=== PATIENT | male | born 1950 | race Caucasian/White ===

== ENCOUNTER 2016-06-21 06:54 | Outpatient (CLI) | payer MEDICARE, OTHER | END 2016-06-21 06:55 | disposition home or self-care (01) | DX: E78.5 Hyperlipidemia, unspecified (principal); E11.9 Type 2 diabetes mellitus without complications; M10.9 Gout, unspecified ==

== ENCOUNTER 2016-08-29 08:38 | Day surgery (SDC) | payer MEDICARE, OTHER ==
[2016-08-29] MEDS ORDERED: LACTATED RINGERS 1,000 ML IV ONE (09:20)
[2016-08-29] MEDS ORDERED: MIDAZOLAM 2 MG/2 ML VIAL IVP ONE (11:08)
[2016-08-29] MEDS ORDERED: ONDANSETRON 4 MG/2 ML VIAL IVP ONE (11:08)
[2016-08-29] MEDS ORDERED: fentaNYL 250 MCG/5 ML VIAL IVP ONE (11:08)
== END 2016-08-29 08:39 | disposition home or self-care (01) ==
PROC: 0DBP8ZX Excision of Rectum, Via Natural or Artificial Opening Endoscopic, Diagnostic (ICD-10-PCS; 2016-08-29)
PROC: 0DBH8ZX Excision of Cecum, Via Natural or Artificial Opening Endoscopic, Diagnostic (ICD-10-PCS; principal; 2016-08-29 09:45)
DX: Z12.11 Encounter for screening for malignant neoplasm of colon (principal); K62.1 Rectal polyp; D12.0 Benign neoplasm of cecum; K57.30 Diverticulosis of large intestine without perforation or abscess without bleeding; K64.8 Other hemorrhoids; E11.9 Type 2 diabetes mellitus without complications; I10 Essential (primary) hypertension; Z79.82 Long term (current) use of aspirin; Z79.84 Long term (current) use of oral hypoglycemic drugs; Z88.2 Allergy status to sulfonamides; Z80.0 Family history of malignant neoplasm of digestive organs; Z80.1 Family history of malignant neoplasm of trachea, bronchus and lung; Z80.8 Family history of malignant neoplasm of other organs or systems; Z83.3 Family history of diabetes mellitus; Z82.49 Family history of ischemic heart disease and other diseases of the circulatory system; E66.01 Morbid (severe) obesity due to excess calories; Z68.41 Body mass index [BMI] 40.0-44.9, adult
CPT/HCPCS: 45380; J3010; J7120

== ENCOUNTER 2017-01-02 08:40 | Outpatient (CLI) | payer MEDICARE, OTHER ==
[2017-01-02 13:39] LABS: CALCIUM 9.5 mg/dL (8.5-10.3); CREATININE 0.9 mg/dL (0.6-1.2); POTASSIUM 3.9 mmol/L (3.5-5.0)
[2017-01-02 16:52] LABS: HEMOGLOBIN A1C 0.98 g/dL
== END 2017-01-02 08:41 ==
LOC: LAB.WCP 08:40
PROVIDERS: ATTEND Family Medicine
DX: E11.9 Type 2 diabetes mellitus without complications (principal); Z12.5 Encounter for screening for malignant neoplasm of prostate
CPT/HCPCS: 36415; 80048; 83036; G0103; 84153

== ENCOUNTER 2017-06-29 08:00 | Outpatient (CLI) | payer MEDICARE, OTHER ==
[2017-06-29 12:26] LABS: BASOPHILS # (AUTO) 0.1 10^3/uL (0.0-0.1); BASOPHILS % (AUTO) 0.7 %; EOSINOPHILS # (AUTO) 0.5 10^3/uL (0.0-0.7); EOSINOPHILS % (AUTO) 4.6 %; HGB - HEMOGLOBIN 14.5 g/dL (14.0-18.0); LYMPHOCYTES # (AUTO) 3.5 10^3/uL (1.5-3.5); LYMPHOCYTES % (AUTO) 33.7 %; MEAN CORPUSCULAR HEMOGLOBIN 29.4 pg (27.0-31.0); MEAN CORPUSCULAR VOLUME 86.3 fL (80.0-94.0); MEAN PLATELET VOLUME 8.9 fL (7.4-11.4); MONOCYTES % (AUTO) 9.2 %; NEUTROPHILS # (AUTO) 5.3 10^3/uL (1.5-6.6); NEUTROPHILS % (AUTO) 51.8 %; PLT - PLATELET COUNT 236 10^3/uL (130-450); RED BLOOD COUNT 4.92 10^6/uL (4.70-6.10); RED CELL DISTRIBUTION WIDTH 13.9 % (12.0-15.0); WHITE BLOOD COUNT 10.3 x10^3/uL (4.8-10.8)
[2017-06-29 12:45] LABS: ALBUMIN 3.9 g/dL (3.2-5.5); ALBUMIN/GLOBULIN RATIO 1.1 (1.0-2.2); ALKALINE PHOSPHATASE 49 IU/L (42-121); ALT ALANINE AMINOTRANSFERASE 34 IU/L (10-60); AST ASPARTATE AMINOTRANSFERASE 30 IU/L (10-42); BILIRUBIN,TOTAL 0.6 mg/dL (0.2-1.0); BUN - BLOOD UREA NITROGEN 12 mg/dL (6-20); CARBON DIOXIDE - CO2 27 mmol/L (21-32); CHLORIDE 100 mmol/L (101-111); CHOL/HDL RATIO 3.7 (<5.0); CHOLESTEROL 171 mg/dL; CREATININE 0.9 mg/dL (0.6-1.2); GFR - MDRD 84 (>89); GLUCOSE 146 mg/dL (70-100); HDL CHOLESTEROL 46 mg/dL; LDL CHOLESTEROL,CALCULATED 86 mg/dL; LDL/HDL RATIO 1.9 (<3.6); SODIUM 137 mmol/L (135-145); TOTAL PROTEIN 7.4 g/dL (6.7-8.2); VLDL CHOLESTEROL 39 mg/dL
[2017-06-29 13:20] LABS: HB2 TOTAL 15.7 g/dL; HEMOGLOBIN A1C 1.05 g/dL; HEMOGLOBIN A1C % 8.3 % (4.6-6.2)
== END 2017-06-29 08:01 | disposition home or self-care (01) ==
LOC: LAB.WCP 08:00
PROVIDERS: ATTEND Family Medicine
DX: E11.9 Type 2 diabetes mellitus without complications (principal)
CPT/HCPCS: 36415; 80053; 80061; 82043; 83036; 83721; 85025

== ENCOUNTER 2018-02-12 07:54 | Outpatient (CLI) | payer MEDICARE, OTHER ==
[2018-02-12 13:41] LABS: ALBUMIN 3.9 g/dL (3.2-5.5); ALBUMIN/GLOBULIN RATIO 1.1 (1.0-2.2); BILIRUBIN,TOTAL 0.4 mg/dL (0.2-1.0); CALCIUM 8.8 mg/dL (8.5-10.3); CREATININE 0.8 mg/dL (0.6-1.2); TOTAL PROTEIN 7.5 g/dL (6.7-8.2)
[2018-02-12 14:44] LABS: HB2 TOTAL 15.5 g/dL; HEMOGLOBIN A1C 0.89 g/dL; HEMOGLOBIN A1C % 7.4 % (4.6-6.2)
== END 2018-02-12 07:55 | disposition home or self-care (01) ==
LOC: LAB.WCP 07:54
PROVIDERS: ATTEND Family Medicine
DX: E11.9 Type 2 diabetes mellitus without complications (principal); Z12.5 Encounter for screening for malignant neoplasm of prostate
CPT/HCPCS: 36415; 80053; 83036; G0103; 84153

== ENCOUNTER 2018-10-15 08:45 | Outpatient (CLI) | payer MEDICARE, OTHER ==
[2018-10-15 12:51] LABS: BASOPHILS # (AUTO) 0.1 10^3/uL (0.0-0.1); BASOPHILS % (AUTO) 0.7 %; EOSINOPHILS # (AUTO) 0.6 10^3/uL (0.0-0.7); EOSINOPHILS % (AUTO) 7.7 %; HGB - HEMOGLOBIN 14.8 g/dL (14.0-18.0); LYMPHOCYTES # (AUTO) 2.3 10^3/uL (1.5-3.5); LYMPHOCYTES % (AUTO) 30.9 %; MEAN CORPUSCULAR HEMOGLOBIN 30.5 pg (27.0-31.0); MEAN CORPUSCULAR HGB CONC 33.6 g/dL (32.0-36.0); MEAN CORPUSCULAR VOLUME 90.9 fL (80.0-94.0); MEAN PLATELET VOLUME 9.1 fL (7.4-11.4); MONOCYTES # (AUTO) 0.8 10^3/uL (0.0-1.0); MONOCYTES % (AUTO) 10.2 %; NEUTROPHILS # (AUTO) 3.8 10^3/uL (1.5-6.6); NEUTROPHILS % (AUTO) 50.5 %; PLT - PLATELET COUNT 221 10^3/uL (130-450); RED BLOOD COUNT 4.84 10^6/uL (4.70-6.10); RED CELL DISTRIBUTION WIDTH 14.2 % (12.0-15.0); WHITE BLOOD COUNT 7.5 x10^3/uL (4.8-10.8)
[2018-10-15 13:19] LABS: ALBUMIN/GLOBULIN RATIO 1.1 (1.0-2.2); ALKALINE PHOSPHATASE 49 IU/L (42-121); ALT ALANINE AMINOTRANSFERASE 72 IU/L (10-60); AST ASPARTATE AMINOTRANSFERASE 69 IU/L (10-42); BILIRUBIN,TOTAL 0.6 mg/dL (0.2-1.0); BUN - BLOOD UREA NITROGEN 10 mg/dL (6-20); CALCIUM 9.5 mg/dL (8.5-10.3); CARBON DIOXIDE - CO2 26 mmol/L (21-32); CHLORIDE 100 mmol/L (101-111); CHOL/HDL RATIO 3.8 (<5.0); CHOLESTEROL 176 mg/dL; CREATININE 0.9 mg/dL (0.6-1.2); GFR - MDRD 84 (>89); GLUCOSE 141 mg/dL (70-100); HDL CHOLESTEROL 46 mg/dL; LDL CHOLESTEROL,CALCULATED 61 mg/dL; LDL/HDL RATIO 1.3 (<3.6); SODIUM 137 mmol/L (135-145); TOTAL PROTEIN 7.6 g/dL (6.7-8.2); VLDL CHOLESTEROL 69 mg/dL
[2018-10-15 13:48] LABS: HB2 TOTAL 16.6 g/dL; HEMOGLOBIN A1C 0.93 g/dL; HEMOGLOBIN A1C % 7.3 % (4.6-6.2)
== END 2018-10-15 08:46 | disposition home or self-care (01) ==
LOC: LAB.WCP 08:45
PROVIDERS: ATTEND Family Medicine
DX: E11.9 Type 2 diabetes mellitus without complications (principal); R97.20 Elevated prostate specific antigen [PSA]
CPT/HCPCS: 36415; 80053; 80061; 82043; 83036; 83721; 84153; 85025

== ENCOUNTER 2018-11-15 08:06 | Outpatient (CLI) | payer MEDICARE, OTHER ==
--- NOTE | 2018-11-15 09:30 | Ultrasound Report ---
Reason: LIVER FUNCTION TESTS,ABNORMAL Procedure Date: 11/15/2018 Accession Number: [id number] / [id number] Procedure: US - Abdomen Limited CPT Code: FULL RESULT: EXAM: ABDOMEN ULTRASOUND LIMITED, RUQ EXAM DATE: 11/15/2018 09:11 AM. CLINICAL HISTORY: LIVER FUNCTION TESTS,ABNORMAL. COMPARISON: 11/15/2018 9:09 AM. TECHNIQUE: Real-time scanning was performed with static images obtained. FINDINGS: Liver: Diffusely echogenic liver parenchyma. There is an oval anterior right hepatic mass measuring 17 x 13 x 7 mm diameter with increased vascularity. Liver length is 22.6 cm. Main portal vein flow: Hepatopetal. Gallbladder: Normal. No stones, wall thickening, or sonographic Arnold's sign. Biliary System: CBD measures 5.4 mm. No intrahepatic or extrahepatic ductal dilatation. Other: Unremarkable right kidney with length 14.2 cm. IMPRESSION: 1. Diffusely echogenic liver parenchyma with hepatomegaly. Finding is nonspecific and can be seen in a variety of parenchymal disorders including steatosis, cirrhosis, and hepatitis. 2. There is a suspicious anterior right hepatic 17 mm maximal diameter mass that requires further evaluation. Recommend either triple phase CT abdomen without and with IV contrast, or MRI abdomen without and with IV contrast. [facility]
== END 2018-11-15 08:07 | disposition home or self-care (01) ==
LOC: DI 08:06
PROVIDERS: ATTEND Family Medicine
DX: R16.0 Hepatomegaly, not elsewhere classified (principal)
CPT/HCPCS: 76705

== ENCOUNTER 2018-11-29 07:42 | Outpatient (CLI) | payer MEDICARE, OTHER ==
[2018-11-29] MEDS ORDERED: IOVERSOL 320 100 ML VIAL IVP ONE ×2 (07:56→13:27)
[2018-11-29 08:27] LABS: CREATININE 0.9 mg/dL (0.6-1.2)
--- NOTE | 2018-11-29 11:01 | CT Report ---
Reason: LIVER MASS Procedure Date: 11/29/2018 Accession Number: [id number] / [id number] Procedure: CT - ABDOMEN W/WO CPT Code: FULL RESULT: EXAM: CT ABDOMEN WITHOUT AND WITH CONTRAST EXAM DATE: 11/29/2018 08:53 AM. HISTORY: Liver mass. COMPARISON: None. TECHNIQUE: Routine helical CT imaging was performed through the abdomen before and after administration of IV contrast: 100 mL Optiray 320. Enteric contrast: No. Reconstruction: Coronal and sagittal. In accordance with CT protocol optimization, one or more of the following dose reduction techniques were utilized for this exam: automated exposure control, adjustment of mA and/or KV based on patient size, or use of iterative reconstructive technique. FINDINGS: Lung Bases: Unremarkable. Liver: The liver does not meet CT formal criteria for steatosis but does subjectively seem somewhat hypodense, compatible with sonographic appearance. Corresponding to the peripheral hypodensity seen on ultrasound with apparent feeding vessel by color Doppler is a vague area of peripheral hypodensity seen on noncontrast images 35-37 series 4 which demonstrates geographic peripheral arterial enhancement and again becomes essentially imperceptible on portal venous phase, CT appearance is nonspecific. Gallbladder/Bile Ducts: Unremarkable. Spleen: Normal. Pancreas: Normal. No masses or ductal obstruction. Adrenal Glands: Normal. Kidneys: Normal. No masses or hydronephrosis. Peritoneal Cavity/Bowel: There is a heterogeneous hypervascular mass posterior to the duodenum, anterior to the right renal hilum which is mildly malrotated, see image 47 series 6 and image 36 series 11, 2.1 x 2.3 cm. Only partially imaged as seen on images 46 and 47 as well as coronally on image 20 is ill-defined soft tissue density within the central mesentery with surrounding prominent small lymph nodes. No free air is seen. Vasculature: No aneurysms or other significant abnormality. Bones: No significant abnormality. Other: None. IMPRESSION: Hypervascular 2.3 cm mass as described. The liver lesion remains formally indeterminate. Abnormal soft tissue within the mesentery. Recommendation: Initially, I recommend completion of anatomic visualization by CT to aid in planning for biopsy. MRI characterization may eventually be necessary. [facility]
[2018-11-29] MEDS ORDERED: IOVERSOL 320 50 ML VIAL PO ONE (13:27)
== END 2018-11-29 07:43 | disposition home or self-care (01) ==
LOC: DI 07:42
PROVIDERS: ATTEND Family Medicine
DX: K76.89 Other specified diseases of liver (principal)
CPT/HCPCS: 74170; 82565; Q9967

== ENCOUNTER 2018-12-17 07:13 | Outpatient (CLI) | payer MEDICARE, OTHER ==
[2018-12-17] MEDS ORDERED: IOVERSOL 320 100 ML VIAL IVP ONE ×2 (07:27→09:36)
[2018-12-17] MEDS ORDERED: IOVERSOL 320 50 ML VIAL ONE (07:27)
[2018-12-17] MEDS ORDERED: IOVERSOL 320 50 ML VIAL PO ONE (09:36)
--- NOTE | 2018-12-17 12:28 | CT Report ---
Reason: LIVER MASS Procedure Date: 12/17/2018 Accession Number: [id number] / [id number] Procedure: CT - Abdomen/Pelvis W CPT Code: FULL RESULT: EXAM: CT ABDOMEN AND PELVIS EXAM DATE: 12/17/2018 08:42 AM. CLINICAL HISTORY: LIVER MASS. COMPARISONS: ABDOMEN W/WO 11/29/2018 8:40 AM. TECHNIQUE: Routine helical CT imaging was performed through the abdomen and pelvis. IV contrast: OPTI 320 100ML. Enteric contrast: Yes. Reconstructions: Coronal and sagittal. In accordance with CT protocol optimization, one or more of the following dose reduction techniques were utilized for this exam: automated exposure control, adjustment of mA and/or KV based on patient size, or use of iterative reconstructive technique. FINDINGS: Lung Bases: There is a calcified granuloma in the right lung base. There is atherosclerosis of the aorta and coronary arteries. Solid organs: The liver is without evidence of an enhancing mass. The spleen, pancreas, and adrenal glands are normal in appearance. There is redemonstration of a mass abutting the duodenum. The enhancement pattern is heterogeneous. It measures 2.1 x 2.3 cm (image 46 of series 3) there is redemonstration of a diffuse mesenteric infiltrative process the margins are ill-defined. On image 47 of series 3 measures approximately 7.4 x 5.7 cm. Adjacent to the fat stranding and well-circumscribed lesion is a vascular lesion measuring 12 x 14 mm (image 53 of series 3). This may represent a AV fistula. Peritoneal Cavity/Bowel: The appendix is normal in appearance . Diverticuli are seen involving the descending and sigmoid colon. There is no fat stranding or fluid collection to suggest the presence of diverticulitis. Pelvic Organs: There is a small fat-containing right inguinal hernia. No mass or cyst is seen within the pelvis. There is no pelvic or periaortic lymphadenopathy. Vasculature: There is atherosclerosis of the aorta and its branches, including the coronary arteries. Bones: Degenerative changes of the thoracic and lumbar spine are noted. Other: None. IMPRESSION: Redemonstration of an infiltrating mesenteric lesion, as described above. Redemonstration of a well-circumscribed lesion abutting the duodenum and anterior to the right kidney most likely represents a neoplastic process. Vascular lesion inferior to the well-circumscribed lesion in the retroperitoneum that may represent an AV fistula. Diverticulosis of the descending colon without evidence of diverticulitis. Atherosclerosis of the aorta and its branches, including the coronary arteries. [facility]
== END 2018-12-17 07:14 | disposition home or self-care (01) ==
LOC: DI 07:13
PROVIDERS: ATTEND Family Medicine
DX: K76.89 Other specified diseases of liver (principal); K92.89 Other specified diseases of the digestive system; K57.30 Diverticulosis of large intestine without perforation or abscess without bleeding; K40.90 Unilateral inguinal hernia, without obstruction or gangrene, not specified as recurrent; J84.10 Pulmonary fibrosis, unspecified; I70.0 Atherosclerosis of aorta
CPT/HCPCS: 74177; Q9967

== ENCOUNTER 2019-02-27 10:48 | Outpatient (CLI) | payer MEDICARE, OTHER ==
[2019-02-27] MEDS ORDERED: IOVERSOL 320 50 ML VIAL ONE (11:07)
[2019-02-27] MEDS ORDERED: IOVERSOL 320 100 ML VIAL IVP ONE (11:07)
--- NOTE | 2019-03-03 09:11 | CT Report ---
Reason: MESENTERIC MASS Procedure Date: 02/27/2019 Accession Number: [id number] / [id number] Procedure: CT - Abdomen/Pelvis W CPT Code: FULL RESULT: EXAM: CT ABDOMEN AND PELVIS EXAM DATE: 02/27/2019 12:30 PM. CLINICAL HISTORY: Mesenteric mass. COMPARISONS: ABDOMEN/PELVIS W/ 12/17/2018 8:30 AM. TECHNIQUE: Routine helical CT imaging was performed through the abdomen and pelvis. IV contrast: 100 mL Optiray 320. Enteric contrast: Yes. Reconstructions: Coronal and sagittal. In accordance with CT protocol optimization, one or more of the following dose reduction techniques were utilized for this exam: automated exposure control, adjustment of mA and/or KV based on patient size, or use of iterative reconstructive technique. FINDINGS: Lung Bases: Unremarkable. Liver: Normal. No masses. Gallbladder/Bile Ducts: Unremarkable. Spleen: Normal. Pancreas: Normal. Adrenal Glands: Normal. Kidneys: Normal. No masses or hydronephrosis. Peritoneal Cavity/Bowel: As before, there are somewhat masslike infiltrative soft tissue attenuation changes seen in the right mesentery again measuring approximately 7.4 x 5.7 cm (image 48/3). There is no mass-effect on the mesenteric vasculature coursing within. A heterogeneous nodule abutting the third portion of the duodenum is again seen measuring 2.3 x 2.2 cm, unchanged (image 47/30). No new mass is identified. The bowel loops are notable for mild diffuse colonic diverticulosis without diverticulitis. There is no obstruction or ileus. The appendix is normal. Pelvic Organs: Normal. The bladder and visualized pelvic organs are within normal limits. Vasculature: Calcified atherosclerotic disease of the aorta is seen without aneurysm or other significant vascular abnormality. Bones: No significant abnormality. Other: None. IMPRESSION: 1. Stable exam compared with 12/17/2018 including infiltrative soft tissue attenuation changes in the mesentery measuring up to 7.4 x 5.7 cm and circumscribed heterogeneous nodule abutting the third portion of the duodenum measuring 2.3 x 2.2 cm. 2. No new mass or lymphadenopathy is identified. [facility]
== END 2019-02-27 10:49 | disposition home or self-care (01) ==
LOC: DI 10:48
PROVIDERS: ATTEND Surgery
DX: R19.00 Intra-abdominal and pelvic swelling, mass and lump, unspecified site (principal)
CPT/HCPCS: 36415; 74177; 82565; Q9967

== ENCOUNTER 2019-07-03 09:23 | Outpatient (CLI) | payer MEDICARE, OTHER ==
[2019-07-03 09:49] LABS: HGB - HEMOGLOBIN 14.5 g/dL (14.0-18.0); MEAN CORPUSCULAR HEMOGLOBIN 29.1 pg (27.0-31.0); MEAN CORPUSCULAR HGB CONC 32.9 g/dL (32.0-36.0); MEAN CORPUSCULAR VOLUME 88.6 fL (80.0-94.0); MEAN PLATELET VOLUME 9.5 fL (7.4-11.4); RED BLOOD COUNT 4.98 10^6/uL (4.70-6.10); RED CELL DISTRIBUTION WIDTH 13.5 % (12.0-15.0); WHITE BLOOD COUNT 8.4 x10^3/uL (4.8-10.8)
== END 2019-07-03 09:24 | disposition home or self-care (01) ==
LOC: LAB 09:23
PROVIDERS: ATTEND Optometrist Corneal and Contact Management
DX: H47.012 Ischemic optic neuropathy, left eye (principal)
CPT/HCPCS: 36415; 85027; 85651; 86140

== ENCOUNTER 2019-07-03 10:21 | Outpatient (CLI) | payer MEDICARE, OTHER ==
[2019-07-03 10:24] LABS: ABNORMAL LYMPHS % (MANUAL) 0 %
[2019-07-03 13:07] LABS: HB2 TOTAL 15.1 g/dL; HEMOGLOBIN A1C 0.91 g/dL; HEMOGLOBIN A1C % 7.7 % (4.6-6.2)
[2019-07-03 13:23] LABS: ALBUMIN/GLOBULIN RATIO 1.1 (1.0-2.2); ALKALINE PHOSPHATASE 46 IU/L (42-121); ALT ALANINE AMINOTRANSFERASE 33 IU/L (10-60); AST ASPARTATE AMINOTRANSFERASE 31 IU/L (10-42); BILIRUBIN,TOTAL 0.7 mg/dL (0.2-1.0); BUN - BLOOD UREA NITROGEN 13 mg/dL (6-20); CALCIUM 9.1 mg/dL (8.5-10.3); CARBON DIOXIDE - CO2 26 mmol/L (21-32); CHLORIDE 100 mmol/L (101-111); CHOL/HDL RATIO 3.7 (<5.0); CHOLESTEROL 165 mg/dL; CREATININE 0.9 mg/dL (0.6-1.2); GFR - MDRD 84 (>89); GLUCOSE 135 mg/dL (70-100); HDL CHOLESTEROL 45 mg/dL; LDL CHOLESTEROL,CALCULATED 76 mg/dL; LDL/HDL RATIO 1.7 (<3.6); SODIUM 138 mmol/L (135-145); TOTAL PROTEIN 7.7 g/dL (6.7-8.2); VLDL CHOLESTEROL 44 mg/dL
[2019-07-03 13:44] LABS: BAND NEUTROPHILS % (MANUAL) 2 %; BASOPHILS % (MANUAL) 2 %; DIFFERENTIAL COMMENT MANUAL DIFFERENTIAL; LYMPHOCYTES % (MANUAL) 15 %
[2019-07-03 13:47] LABS: BASOPHILS # (MANUAL) 0.2 10^3/uL (0-0.1); LYMPHOCYTES # (MANUAL) 2.9 10^3/uL (1.5-3.5); MONOCYTES # (MANUAL) 0.5 10^3/uL (0.0-1.0); WHITE BLOOD COUNT 7.5 x10^3/uL (4.8-10.8)
== END 2019-07-03 23:59 | disposition home or self-care (01) ==
LOC: LAB.WCP 10:21
PROVIDERS: ATTEND Family Medicine
DX: R97.20 Elevated prostate specific antigen [PSA] (principal); Z79.4 Long term (current) use of insulin; E11.9 Type 2 diabetes mellitus without complications; I10 Essential (primary) hypertension; Z79.899 Other long term (current) drug therapy; I63.9 Cerebral infarction, unspecified; E78.5 Hyperlipidemia, unspecified
CPT/HCPCS: 36415; 80053; 80061; 83036; 83721; 84153; 84443

== ENCOUNTER 2019-08-08 08:29 | Outpatient (CLI) | payer MEDICARE, OTHER | END 2019-08-08 23:59 | disposition home or self-care (01) | LOC: LAB.WCP 08:29 | PROVIDERS: ATTEND Family Medicine | DX: R70.0 Elevated erythrocyte sedimentation rate (principal) | CPT/HCPCS: 36415; 85651; 86140 ==

== ENCOUNTER 2019-08-14 08:38 | Outpatient (CLI) | payer MEDICARE, OTHER ==
[2019-08-14] MEDS ORDERED: IOVERSOL 320 50 ML VIAL ONE (08:46)
[2019-08-14] MEDS ORDERED: IOVERSOL 320 100 ML VIAL IVP ONE ×2 (08:47→13:07)
[2019-08-14] MEDS ORDERED: IOVERSOL 320 50 ML VIAL PO ONE (13:07)
--- NOTE | 2019-08-15 15:21 | CT Report ---
Reason: CALCIFIED MESENTERIC MASS Procedure Date: 08/14/2019 Accession Number: [id number] / [id number] Procedure: CT - Abdomen/Pelvis W CPT Code: Final Report FULL RESULT: EXAM: CT ABDOMEN AND PELVIS EXAM DATE: 08/14/2019 10:47 AM. CLINICAL HISTORY: Calcified mesenteric mass. COMPARISONS: ABDOMEN/PELVIS W/ 02/27/2019 12:10 PM ABDOMEN/PELVIS W/ 12/17/2018 8:30 AM. TECHNIQUE: Routine helical CT imaging was performed through the abdomen and pelvis. IV contrast: 100 cc Optiray 320. Enteric contrast: No. Reconstructions: Coronal and sagittal. In accordance with CT protocol optimization, one or more of the following dose reduction techniques were utilized for this exam: automated exposure control, adjustment of mA and/or KV based on patient size, or use of iterative reconstructive technique. FINDINGS: Lung Bases: Lung bases are clear. No pleural or pericardial effusions. Extensive multivessel coronary artery disease. No significant cardiac enlargement. Small hiatal hernia noted. Liver: Generalized low density of the liver parenchyma is noted. Geographic wedge-shaped region of increased vascularity is noted in the right liver on image 3, 40. No defined margins to suggest a mass. No intrahepatic bile duct dilation. Portal vein is patent. Gallbladder/Bile Ducts: Unremarkable. Spleen: Normal. Pancreas: Normal. Adrenal Glands: Normal. Kidneys: Normal. No masses or hydronephrosis. Peritoneal Cavity/Bowel: No ascites or pneumoperitoneum. No pathologic lymphadenopathy. Decreasing size of the infiltrative mesenteric mass currently measuring 4.5 x 3.5 cm on image 3, 55 compared with the previous 5.7 x 7.4 cm. No new mesenteric masses are noted. Heterogeneous 2.4 x 2.4 cm nodule abutting the third portion of the duodenum on image 3, 52 is noted. Previously measuring 2.5 x 2.2 cm. There is a third mesenteric nodule measuring 1.4 cm on image 3, 59 unchanged from the prior study. No new mesenteric lesions are present. Colonic diverticulosis is present. No focal large bowel wall thickening or large bowel dilation to suggest obstruction. Normal appendix. Normal small bowel and stomach. Pelvic Organs: Mild prostate enlargement with central coarse prostate calcifications. Mild seminal vesicle enlargement. No focal mass. Otherwise, the bladder and visualized pelvic organs are within normal limits. No collections, ascites or adenopathy. Vasculature: Diffuse atheromatous plaques are present in the abdominal aorta and branch vessels. No aneurysm. Normal IVC. Bones: No osteoblastic or osteolytic lesions. DISH is noted in the mid and lower thoracic and mid lumbar spine. Other: None. IMPRESSION: 1. Decreasing size of the infiltrative mesenteric soft tissue mass. Stable probably partially calcified mesenteric nodules. No new mesenteric masses. 2. No pathologic lymphadenopathy. 3. Diverticulosis. Normal appendix. No inflammation. [facility]
== END 2019-08-14 08:39 | disposition home or self-care (01) ==
LOC: DI 08:38
PROVIDERS: ATTEND Surgery
DX: R01.1 Cardiac murmur, unspecified (principal); R19.09 Other intra-abdominal and pelvic swelling, mass and lump; H53.2 Diplopia; I11.9 Hypertensive heart disease without heart failure; I35.0 Nonrheumatic aortic (valve) stenosis; K57.30 Diverticulosis of large intestine without perforation or abscess without bleeding
CPT/HCPCS: 36415; 74177; 82565; 93306; Q9967

== ENCOUNTER 2019-10-02 08:00 | Outpatient (CLI) | payer MEDICARE, OTHER ==
[2019-10-02 13:59] LABS: ALBUMIN/GLOBULIN RATIO 1.1 (1.0-2.2); ALKALINE PHOSPHATASE 57 IU/L (42-121); ALT ALANINE AMINOTRANSFERASE 36 IU/L (10-60); AST ASPARTATE AMINOTRANSFERASE 32 IU/L (10-42); BILIRUBIN,TOTAL 0.8 mg/dL (0.2-1.0); BUN - BLOOD UREA NITROGEN 12 mg/dL (6-20); CALCIUM 9.2 mg/dL (8.5-10.3); CARBON DIOXIDE - CO2 30 mmol/L (21-32); CHLORIDE 103 mmol/L (101-111); CHOL/HDL RATIO 3.4 (<5.0); CHOLESTEROL 186 mg/dL; CREATININE 0.9 mg/dL (0.6-1.2); GLUCOSE 96 mg/dL (70-100); HDL CHOLESTEROL 55 mg/dL; LDL CHOLESTEROL,CALCULATED 87 mg/dL; LDL/HDL RATIO 1.6 (<3.6); SODIUM 139 mmol/L (135-145); TOTAL PROTEIN 7.7 g/dL (6.7-8.2); VLDL CHOLESTEROL 44 mg/dL
[2019-10-02 14:15] LABS: HB2 TOTAL 15.4 g/dL; HEMOGLOBIN A1C 0.8 g/dL; HEMOGLOBIN A1C % 6.9 % (4.6-6.2)
== END 2019-10-02 23:59 | disposition home or self-care (01) ==
LOC: LAB.WCP 08:00
PROVIDERS: ATTEND Family Medicine
DX: E11.9 Type 2 diabetes mellitus without complications (principal)
CPT/HCPCS: 36415; 80053; 80061; 83036; 83721

== ENCOUNTER 2019-10-22 09:14 | Outpatient (CLI) | payer MEDICARE, OTHER ==
[2019-10-22] MEDS ORDERED: GADOBUTROL 15 MMOL/15 ML VIAL ONE (09:37)
== END 2019-10-22 09:15 | disposition home or self-care (01) ==
LOC: DI 09:14
PROVIDERS: ATTEND Family Medicine
DX: Z53.9 Procedure and treatment not carried out, unspecified reason (principal)

== ENCOUNTER 2020-03-19 10:43 | Outpatient (CLI) | payer MEDICARE, OTHER ==
[2020-03-19] MEDS ORDERED: IOVERSOL 320 100 ML VIAL IVP ONE ×2 (10:54→17:07)
[2020-03-19] MEDS ORDERED: IOVERSOL 320 50 ML VIAL ONE (10:54)
[2020-03-19] MEDS ORDERED: DEXAMETHASONE 20 MG/5 ML VIAL ONE (11:05)
[2020-03-19] MEDS ORDERED: ACETAMINOPHEN 325 MG TABLET PO ONE (11:05)
[2020-03-19] MEDS ORDERED: diphenhydrAMINE INJ 50 MG/ML VIAL ONE (11:05)
[2020-03-19] MEDS ORDERED: FAMOTIDINE 20 MG TABLET ONE (11:05)
[2020-03-19] MEDS ORDERED: SODIUM CHLORIDE FLUSH 0.9% 10 ML SYRINGE ONE (11:06)
--- NOTE | 2020-03-19 16:31 | CT Report ---
PROCEDURE: Abdomen/Pelvis W INDICATIONS: CALCIFIED MESENTERIC MASS CONTRAST: IV CONTRAST: Optiray 320 ml: 100 PO CONTRAST: Optiray 320 ml50 TECHNIQUE: After the administration of weight appropriate dose of intravenous contrast, 5 mm thick sections acqu ired from the diaphragms to the symphysis. 5 mm thick coronal and sagittal reformats were acquired. For radiation dose reduction, the following was used: automated exposure control, adjustment of mA and/or kV according to patient size. s COMPARISON: 02/27/2019 FINDINGS: Image quality: Excellent. ABDOMEN: Lung bases: Stable 4 mm peripheral right middle lobe nodule measured on image 10, series 4. Stable c alcified pulmonary granuloma in the right lung base. Lung bases are otherwise clear. Heart size is n ormal. There are coronary arterial calcifications. Solid organs: Liver and spleen are normal in size and enhancement. Hepatic steatosis with patchy ar eas of focal fatty sparing. Gallbladder is unremarkable Biliary system is non dilated. Pancreas enh ances normally. No adrenal nodules. Kidneys demonstrate normal size and enhancement, without hydron ephrosis. Peritoneum and bowel: Scant colonic diverticulosis without acute diverticulitis. Appendix is normal. Bowel loops demonstrate normal wall thickness and caliber. No free fluid or air. Nodes and vessels: Redemonstration of ill-defined, infiltrative soft tissue attenuation changes invo lving the right mesentery now measuring 7.0 x 4.7 cm (image 48, series 3). It previously measured 7.4 x 5.7 cm. Additionally, the degree of attenuation has decreased on today's study. However, the exten t of mesenteric stranding extends slightly more inferiorly along the right pararenal region and into the right lower abdomen, anterior to the right psoas muscle. No focal mass lesions or increasing atte nuation lesion identified. Previously seen calcified mesenteric lymph nodes have also decreased in si ze. The largest is noted adjacent to the right renal hilum measuring 2.2 cm (image 47, series 3), pre viously 2.6 cm. No new retroperitoneal or mesenteric adenopathy by size criteria. Aorta and inferior vena cava are normal in size. There are atherosclerotic calcifications of the abdominal aorta. Miscellaneous: No ventral hernias. PELVIS: Genitourinary: Bladder wall thickness is within normal limits for degree of decompression. Miscellaneous: No inguinal hernias or adenopathy. Bones: No suspicious bony lesions. No acute vertebral body compression fractures. Multilevel spondy losis. IMPRESSION: 1. Redemonstration of ill-defined, infiltrative soft tissue attenuation changes involving the right m esentery which although appears to have increased in extent within the right abdomen, it has decrease d in overall attenuation/density. Specifically, previously described lesion in the right mesentery me asuring 7.4 x 5.7 cm now measures approximately 7.0 x 4.7 cm and is significantly lower in attenuatio n. It appears similar to stranding versus an infiltrative mass on today's evaluation. Stable appearan ce of right mesenteric calcified lymph nodes. No new mass lesions or new adenopathy. 2. Stable 4 mm peripheral right middle lobe pulmonary nodule. 3. Scant colonic diverticulosis without acute diverticulitis. 4. Diffuse hepatic steatosis with patchy areas of focal fatty sparing. Reviewed by: Kyle Marte MD on 03/19/2020 4:29 PM PDT Approved by: Kyle Marte MD on 03/19/2020 4:29 PM PDT Station ID: [id number]
[2020-03-19] MEDS ORDERED: IOVERSOL 320 50 ML VIAL PO ONE (17:06)
== END 2020-03-19 10:44 | disposition home or self-care (01) ==
LOC: DI 10:43
PROVIDERS: ATTEND Surgery
DX: K66.8 Other specified disorders of peritoneum (principal); K76.0 Fatty (change of) liver, not elsewhere classified; R91.1 Solitary pulmonary nodule
CPT/HCPCS: 36415; 74177; 82565; Q9967

== ENCOUNTER 2020-04-01 08:06 | Outpatient (CLI) | payer MEDICARE, OTHER ==
[2020-04-01 11:49] LABS: ALBUMIN 4.1 g/dL (3.2-5.5); ALBUMIN/GLOBULIN RATIO 1.1 (1.0-2.2); BILIRUBIN,TOTAL 0.4 mg/dL (0.2-1.0); CALCIUM 9.6 mg/dL (8.5-10.3); CREATININE 0.9 mg/dL (0.6-1.2); TOTAL PROTEIN 7.9 g/dL (6.7-8.2)
[2020-04-01 13:10] LABS: HEMOGLOBIN A1c% 6.4 % (4.27-6.07)
== END 2020-04-01 08:07 | disposition home or self-care (01) ==
LOC: LAB.WCP 08:06
PROVIDERS: ATTEND Family Medicine
DX: E11.9 Type 2 diabetes mellitus without complications (principal)
CPT/HCPCS: 36415; 80053; 83036

== ENCOUNTER 2020-10-19 08:10 | Outpatient (CLI) | payer MEDICARE, OTHER ==
[2020-10-19] MEDS ORDERED: IOPAMIDOL-300 50 ML VIAL ONE (08:17)
[2020-10-19] MEDS ORDERED: IOPAMIDOL-300 100 ML VIAL ONE (08:17)
[2020-10-19 08:45] LABS: CREATININE 0.8 mg/dL (0.6-1.2)
--- NOTE | 2020-10-19 11:55 | CT Report ---
PROCEDURE: Abdomen/Pelvis W INDICATIONS: CALCIFIED MESENTRIC MASS CONTRAST: IV CONTRAST: Isovue 300 ml: 100 PO CONTRAST: Isovue 300 ml50 TECHNIQUE: After the administration of oral and IV contrast, 5 mm thick sections acquired from the diaphragms to the symphysis. 5 mm thick coronal and sagittal reformats were acquired. For radiation dose reducti on, the following was used: automated exposure control, adjustment of mA and/or kV according to oxana ent size. COMPARISON: None. FINDINGS: Image quality: Excellent. ABDOMEN: Lung bases: Smooth pleural calcification at the right lung base. The visible lung bases are otherwis e clear. Heart size is normal. Heavy coronary calcification. Solid organs: Liver is stable size, mildly diffusely hypodense, and demonstrates an ill-defined area of relative subcapsular hyperenhancement in segment V. The spleen is normal. Gallbladder appears no rmal. Biliary system is non dilated. Pancreas enhances normally. No adrenal nodules. The kidneys u ptake and excrete IV contrast uniformly and symmetrically. Within the right pararenal space, there is moderate inflammatory changes medially. An ovoid heterogen eous mass measuring 3.0 x 2.5 cm is present, mildly increased compared to remote prior studies where it measured 2.4 x 2.2 cm. The degree of peripelvic/perinephric inflammation has slightly increased. M ore caudally and associated with what is likely the gonadal vein, there is a 1.6 cm ovoid enhancing m ass. On the contralateral side, 0.9 cm mass is associated with the left gonadal vein. At the level of the iliac crest within the right perinephric space, degree of inflammatory change has increased. The right ureter remains nondilated. Peritoneum and bowel: At the right central small bowel mesentery, there has been redevelopment of a more solid mass, irregular in shape with indistinct, infiltrative margins encasing several mesenteric vessels. This measures approximately 4.9 x 3.8 x 3.2 cm, smaller, and more defined compared to multi ple prior studies. Bowel loops demonstrate normal wall thickness and caliber. Mild sigmoid diverticu losis. No free fluid or air. Nodes and vessels: No retroperitoneal or mesenteric adenopathy by size criteria. Aorta and inferior vena cava are normal in size. Miscellaneous: No ventral hernias. PELVIS: Genitourinary: Bladder wall thickness is normal. Miscellaneous: No inguinal hernias or adenopathy. Bones: No suspicious bony lesions. No vertebral body compression fractures. IMPRESSION: 1. Chronic noncalcified ill-defined mesenteric mass encasing vessels has retracted and become more so lid. Differential diagnosis includes sclerosing mesenteritis, desmoid tumor, carcinoid tumor,, less l ikely lymphoma. 2. Mild interval increase in size of heterogeneous enhancing right perinephric nodule with a differen tial diagnosis including lymph node, granuloma, or aneurysm. There are bilateral enhancing nodules as sociated with the gonadal veins which may be venous aneurysms. 3. Slight interval increase in the degree of right medial perinephric inflammation. Differential diag nosis includes perinephric hemorrhage, urinoma, less likely retroperitoneal fibrosis or lymphoma. Reviewed by: Syl Solis MD on 10/19/2020 11:54 AM PDT Approved by: Syl Solis MD on 10/19/2020 11:54 AM PDT Station ID: [id number]
[2020-10-19] MEDS ORDERED: IOPAMIDOL-300 100 ML VIAL IVP ONE (17:00)
[2020-10-19] MEDS ORDERED: IOPAMIDOL-300 50 ML VIAL PO ONE (17:01)
== END 2020-10-19 08:11 | disposition home or self-care (01) ==
LOC: LAB 08:10 → DI 08:11
PROVIDERS: ATTEND Surgery
DX: R19.09 Other intra-abdominal and pelvic swelling, mass and lump (principal); N15.8 Other specified renal tubulo-interstitial diseases; R19.00 Intra-abdominal and pelvic swelling, mass and lump, unspecified site
CPT/HCPCS: 36415; 74177; 82565; Q9967

== ENCOUNTER 2020-11-16 08:00 | Outpatient (CLI) | payer MEDICARE, OTHER ==
[2020-11-16 12:00] LABS: BASOPHILS # (AUTO) 0.1 10^3/uL (0.0-0.1); BASOPHILS % (AUTO) 0.7 %; EOSINOPHILS # (AUTO) 0.4 10^3/uL (0.0-0.7); EOSINOPHILS % (AUTO) 4.3 %; HCT - HEMATOCRIT 45.7 % (42.0-52.0); HGB - HEMOGLOBIN 14.8 g/dL (14.0-18.0); LYMPHOCYTES # (AUTO) 2.3 10^3/uL (1.5-3.5); LYMPHOCYTES % (AUTO) 28.7 %; MEAN CORPUSCULAR HGB CONC 32.4 g/dL (32.0-36.0); MEAN CORPUSCULAR VOLUME 89.4 fL (80.0-94.0); MONOCYTES # (AUTO) 0.8 10^3/uL (0.0-1.0); MONOCYTES % (AUTO) 9.2 %; NEUTROPHILS # (AUTO) 4.6 10^3/uL (1.5-6.6); NEUTROPHILS % (AUTO) 56.7 %; PLT - PLATELET COUNT 227 10^3/uL (130-450); RED BLOOD COUNT 5.11 10^6/uL (4.70-6.10); RED CELL DISTRIBUTION WIDTH 13.2 % (12.0-15.0); WHITE BLOOD COUNT 8.1 x10^3/uL (4.8-10.8)
[2020-11-16 12:06] LABS: CREATININE,URINE 64.3 mg/dL; MICROALBUM/CREATININE RATIO,UR 3.1 ug/mg (<30.0); MICROALBUMIN,URINE 0.2 mg/dL (0-300.0)
[2020-11-16 12:19] LABS: ESTIMATED AVERAGE GLUCOSE 146 mg/dL (70-100); HEMOGLOBIN A1c% 6.7 % (4.27-6.07)
[2020-11-16 12:21] LABS: ALBUMIN 4.1 g/dL (3.2-5.5); ALBUMIN/GLOBULIN RATIO 1.1 (1.0-2.2); ALKALINE PHOSPHATASE 46 IU/L (42-121); ALT ALANINE AMINOTRANSFERASE 22 IU/L (10-60); AST ASPARTATE AMINOTRANSFERASE 19 IU/L (10-42); BILIRUBIN,TOTAL 0.8 mg/dL (0.2-1.0); BUN - BLOOD UREA NITROGEN 19 mg/dL (6-20); CALCIUM 9.5 mg/dL (8.5-10.3); CARBON DIOXIDE - CO2 30 mmol/L (21-32); CHLORIDE 101 mmol/L (101-111); CHOL/HDL RATIO 3.9 (<5.0); CHOLESTEROL 174 mg/dL; CREATININE 0.9 mg/dL (0.6-1.2); GFR - MDRD 83 (>89); GLUCOSE 151 mg/dL (70-100); HDL CHOLESTEROL 45 mg/dL; LDL CHOLESTEROL,CALCULATED 100 mg/dL; LDL/HDL RATIO 2.2 (<3.6); SODIUM 141 mmol/L (135-145); TOTAL PROTEIN 7.7 g/dL (6.7-8.2); TRIGLYCERIDES 144 mg/dL; URIC ACID 4.6 mg/dL (2.6-7.2); VLDL CHOLESTEROL 29 mg/dL
== END 2020-11-16 23:59 | disposition home or self-care (01) ==
LOC: LAB.WCP 08:00
PROVIDERS: ATTEND Family Medicine
DX: E11.9 Type 2 diabetes mellitus without complications (principal); Z12.5 Encounter for screening for malignant neoplasm of prostate
CPT/HCPCS: 36415; 80053; 80061; 82043; 82570; 83036; 84550; 85025; G0103; 83721; 84153

== ENCOUNTER 2021-05-20 08:23 | Outpatient (CLI) | payer MEDICARE, OTHER ==
[2021-05-20 12:23] LABS: WHITE BLOOD COUNT 7.7 x10^3/uL (4.8-10.8)
[2021-05-20 12:24] LABS: BASOPHILS # (AUTO) 0.1 10^3/uL (0.0-0.1); BASOPHILS % (AUTO) 0.9 %; EOSINOPHILS # (AUTO) 0.3 10^3/uL (0.0-0.7); EOSINOPHILS % (AUTO) 4.4 %; HCT - HEMATOCRIT 43.9 % (42.0-52.0); HGB - HEMOGLOBIN 14.6 g/dL (14.0-18.0); LYMPHOCYTES # (AUTO) 2.5 10^3/uL (1.5-3.5); LYMPHOCYTES % (AUTO) 32.9 %; MEAN CORPUSCULAR HEMOGLOBIN 28.9 pg (27.0-31.0); MEAN CORPUSCULAR HGB CONC 33.3 g/dL (32.0-36.0); MEAN CORPUSCULAR VOLUME 86.9 fL (80.0-94.0); MEAN PLATELET VOLUME 10.9 fL (7.4-11.4); MONOCYTES # (AUTO) 0.7 10^3/uL (0.0-1.0); MONOCYTES % (AUTO) 9.6 %; NEUTROPHILS % (AUTO) 51.8 %; PLT - PLATELET COUNT 256 10^3/uL (130-450); RED BLOOD COUNT 5.05 10^6/uL (4.70-6.10); RED CELL DISTRIBUTION WIDTH 12.9 % (12.0-15.0); SLIDE REVIEW? Not Indicated
[2021-05-20 13:33] LABS: ESTIMATED AVERAGE GLUCOSE 157 mg/dL (70-100); HEMOGLOBIN A1c% 7.1 % (4.27-6.07)
[2021-05-20 13:59] LABS: ALBUMIN/GLOBULIN RATIO 1.1 (1.0-2.2); ALKALINE PHOSPHATASE 51 IU/L (42-121); ALT ALANINE AMINOTRANSFERASE 21 IU/L (10-60); AST ASPARTATE AMINOTRANSFERASE 19 IU/L (10-42); BILIRUBIN,TOTAL 0.8 mg/dL (0.2-1.0); BUN - BLOOD UREA NITROGEN 16 mg/dL (6-20); CALCIUM 9.2 mg/dL (8.5-10.3); CARBON DIOXIDE - CO2 27 mmol/L (21-32); CHLORIDE 100 mmol/L (101-111); CHOL/HDL RATIO 3.9 (<5.0); CHOLESTEROL 164 mg/dL; CREATININE 0.9 mg/dL (0.6-1.2); GFR - MDRD 83 (>89); GLUCOSE 140 mg/dL (70-100); HDL CHOLESTEROL 42 mg/dL; LDL CHOLESTEROL,CALCULATED 95 mg/dL; LDL/HDL RATIO 2.3 (<3.6); POTASSIUM 3.9 mmol/L (3.5-5.0); SODIUM 138 mmol/L (135-145); TOTAL PROTEIN 7.6 g/dL (6.7-8.2); TRIGLYCERIDES 136 mg/dL; VLDL CHOLESTEROL 27 mg/dL
== END 2021-05-20 23:59 | disposition home or self-care (01) ==
LOC: LAB.WCP 08:23
PROVIDERS: ATTEND Family Medicine
DX: E11.39 Type 2 diabetes mellitus with other diabetic ophthalmic complication (principal)
CPT/HCPCS: 36415; 80053; 80061; 83036; 83721; 85025

== ENCOUNTER 2021-08-13 07:44 | Outpatient (CLI) | payer MEDICARE, OTHER ==
[2021-08-13] MEDS ORDERED: LACTATED RINGERS 1,000 ML IV ONE (08:07)
[2021-08-13 08:38] LABS: PT - PROTHROMBIN TIME 11.7 secs (9.9-12.6)
[2021-08-13 08:46] LABS: PARTIAL THROMBOPLASTIN TIME 32.3 secs (24.9-33.3)
[2021-08-13] MEDS ORDERED: MIDAZOLAM 2 MG/2 ML VIAL ONE (09:16)
[2021-08-13] MEDS ORDERED: fentaNYL 100 MCG/2 ML VIAL ONE (09:16)
[2021-08-13] MEDS ORDERED: LACTATED RINGERS 700 ML IV ONE (10:05)
[2021-08-13 10:55] VITALS: BP 103/75
--- NOTE | 2021-08-13 12:39 | CT Report ---
PROCEDURE: BONE MARROW BX W/ASPIRATION Sedation analgesia for 20 minutes. INDICATIONS: LYMPHOMA TECHNIQUE: The indications, alternatives, benefits, risks, and possible complications of the procedure were comm unicated to the patient. Informed written consent from the patient was obtained and placed in the art. Continuous EKG and hemodynamic monitoring was started by trained personnel. For radiation dose reduction, the following was used: automated exposure control, adjustment of mA and/or kV according to patient size. The patient was brought to the CT suite and log getter spiral CT imaging was performed with localization g rid. The appropriate site for percutaneous access to the biopsy target was marked, was prepped and d raped sterilely, and was infused with local anaesthesia. Under CT guidance, a core biopsy trocar and needle set was advanced to the biopsy target, and specimen(s) were obtained. The trocar and needle were then removed, and the patient was sent for post-procedure monitoring. COMPARISON: CT abdomen pelvis 10/19/2020. FINDINGS: Biopsy site: Right posterior superior iliac spine. Needle: 11 gauge biopsy needle with introducer trocar. Number of passes: 1 pass was made with the trocar. Initial aspiration was followed by core bone fletcher ow biopsy. Medications: 1% lidocaine for local anaesthesia. IV Fentanyl and Versed for conscious sedation for 20 minutes (see nursing record). Complications: None. IMPRESSION: 1. Successful CT-guided biopsy of bone marrow in the right posterior superior iliac spine. Reviewed by: Ap Apodaca MD on 08/13/2021 12:38 PM PST Approved by: Ap Apodaca MD on 08/13/2021 12:38 PM PST Station ID: [id number]
== END 2021-08-13 07:45 | disposition home or self-care (01) ==
LOC: DI 07:44
PROVIDERS: ATTEND Internal Medicine Hematology & Oncology
DX: C83.30 Diffuse large B-cell lymphoma, unspecified site (principal); C7A.098 Malignant carcinoid tumors of other sites
CPT/HCPCS: 36415; 38222; 77012; 85610; 85730; J7120

== ENCOUNTER 2021-09-01 08:48 | Outpatient (CLI) | payer MEDICARE, OTHER ==
--- NOTE | 2021-09-01 11:38 | Nuclear Medicine Report ---
PROCEDURE: [facility] Cardiac Imaging INDICATIONS: LYMPHOMA RADIOPHARMACEUTICAL: 25.9 mCi Tc-99m labeled autologous red cells IV. TECHNIQUE: After intravenous administration of autologous labeled WBC, CHOCO views of the chest were obtained. A region of interest was drawn around the left ventricle to calculate left ventricle ejection fraction. COMPARISON: None available. FINDINGS: The heart and great vessels are of normal size and configuration. The left ventricle contracts lexus lly, with left ventricle ejection fraction of 60.1%. Normal ejection fractions for this study are ab ove 55%. A drop from baseline ejection fraction of greater than 10 percentage points or to below 45% on follow-up studies may be considered significant. IMPRESSION: Left ventricle ejection fraction is 60.1%. Reviewed by: Antionette Hernandez MD on 09/01/2021 11:37 AM PDT Approved by: Antionette Hernandez MD on 09/01/2021 11:37 AM PDT Station ID: [id number]
== END 2021-09-01 08:49 | disposition home or self-care (01) ==
LOC: DI 08:48
PROVIDERS: ATTEND Internal Medicine Hematology & Oncology
DX: C83.39 Diffuse large B-cell lymphoma, extranodal and solid organ sites (principal)
CPT/HCPCS: 78803; A9512; A9538

== ENCOUNTER 2021-09-03 12:51 | Day surgery (SDC) | payer MEDICARE, OTHER ==
[2021-09-03] MEDS ORDERED: LACTATED RINGERS 1,000 ML IV ONE ×2 (12:55→14:57)
[2021-09-03] MEDS ORDERED: BUPIVACAINE 0.25% PF 30 ML VIAL ONE (13:38)
[2021-09-03] MEDS ORDERED: LIDOCAINE 2%-EPI 1:100000 20 ML MDV ONE (13:38)
--- NOTE | 2021-09-03 13:49 | ANESTHESIA ---
Pre-Anesthesia VS, & Labs - Diagnosis b cell lymphoma - Procedure portacath placement Vital Signs: Temp Pulse Resp BP Pulse Ox 36.1 C L 76 16 131/69 H 97 09/03/21 12:56 09/03/21 12:56 09/03/21 12:56 09/03/21 12:56 09/03/21 12:56 Height: 5 ft 10 in Weight (kg): 112.8 kg Body Mass Index: 35.6 BMI Classification: Obese - NPO >8 hours - Lab Results Current Lab Results: Laboratory Tests 09/03/21 13:27: POC Whole Bld Glucose 122 H Lab results reviewed: Yes Home Medications and Allergies Aspirin 81 mg ORAL DAILY 08/29/16 Cetirizine [ZyrTEC] 10 mg ORAL DAILY PRN 08/29/16 Ibuprofen 200 mg ORAL DAILY PRN 08/29/16 Losartan [Cozaar] 100 mg ORAL DAILY 08/29/16 Lovastatin [Altoprev] 40 mg ORAL DAILY 08/29/16 Metoprolol Tartrate 200 mg ORAL BID 08/29/16 Sildenafil Citrate [Sildenafil] 20 mg ORAL DAILY PRN 08/29/16 allopurinoL [Allopurinol] 150 mg ORAL DAILY 08/29/16 amLODIPine [Norvasc] 10 mg ORAL DAILY 08/29/16 hydroCHLOROthiazide [Hydrochlorothiazide] 25 mg ORAL DAILY 08/29/16 metFORMIN [Glucophage] 2,000 mg ORAL BID 08/29/16 Insulin Aspart [NovoLOG] 14 - 20 units SUBQ TIDWM 11/01/19 Insulin Glargine [Lantus Solostar] 15 units SUBQ DAILY 11/01/19 Anes History & Medical History - Anesthetic History Anesthesia Complications: reports: No previous complications Family history of Anesthesia Complications: Denies Family history of Malignant Hyperthermia: Denies - Medical History Cardiovascular: reports: Hypertension, High cholesterol Pulmonary: reports: None Gastrointestinal: reports: None Urinary: reports: Benign prostate hypertrophy, Frequency Musculoskeletal: reports: None Endocrine/Autoimmune: reports: Type 2 diabetes Skin: reports: None Smoking Status: Never smoker - Surgical History General: reports: Bowel surgery, Colonoscopy, Other Orthopedic: reports: Shoulder arthroplasty, Arthroscopic surgery Exam General: Alert, Oriented x3, Cooperative, No acute distress Dental: WNL Mouth Openin Fingerbreadth Neck Mobility: Normal Mallampati classification: II Plan Anesthesia Type: MAC Consent for Procedure(s) Verified and Reviewed: Yes Code Status: Attempt Resuscitation ASA classification: 3-Severe systemic disease Is this case an emergency?: No
[2021-09-03] MEDS ORDERED: PROPOFOL 500 MG/50 ML 500 MG/50 ML VIAL ONE (14:01)
--- NOTE | 2021-09-03 14:03 | HISTORY & PHYSICAL EXAMINATION ---
Chief Complaint - Chief Complaint Chief Complaint: need for chemotherapy port History of Present Illness - History Obtained From Records Reviewed: yes History obtained from: pt Exam Limitations: none - History of Present Illness HPI Comment/Other: diagnosed with lymphoma. needs a port. History - Past Medical History Cardiovascular: reports: Hypertension, High cholesterol Respiratory: reports: None Endocrine/Autoimmune: reports: Type 2 diabetes GI: reports: None : reports: Benign prostate hypertrophy, Frequency HEENT: reports: None Psych: reports: None Musculoskeletal: reports: None Derm: reports: None MRSA Hx?: No - Past Surgical History General: reports: Bowel surgery, Colonoscopy, Other Ortho: reports: Shoulder arthroplasty, Arthroscopic surgery Meds/Allgy - Home Medications Home Medications: Ambulatory Orders Medication Instructions Recorded Confirmed Aspirin 81 mg ORAL DAILY 08/29/16 09/03/21 Cetirizine [ZyrTEC] 10 mg ORAL DAILY PRN 08/29/16 08/31/21 Ibuprofen 200 mg ORAL DAILY PRN 08/29/16 08/31/21 Losartan [Cozaar] 100 mg ORAL DAILY 08/29/16 09/03/21 Lovastatin [Altoprev] 40 mg ORAL DAILY 08/29/16 09/03/21 Metoprolol Tartrate 200 mg ORAL BID 08/29/16 09/03/21 Sildenafil Citrate [Sildenafil] 20 mg ORAL DAILY PRN 08/29/16 08/31/21 allopurinoL [Allopurinol] 150 mg ORAL DAILY 08/29/16 09/03/21 amLODIPine [Norvasc] 10 mg ORAL DAILY 08/29/16 09/03/21 hydroCHLOROthiazide 25 mg ORAL DAILY 08/29/16 09/03/21 [Hydrochlorothiazide] metFORMIN [Glucophage] 2,000 mg ORAL BID 08/29/16 09/03/21 Insulin Aspart [NovoLOG] 14 - 20 units SUBQ TIDWM 11/01/19 09/03/21 Insulin Glargine [Lantus Solostar] 15 units SUBQ DAILY 11/01/19 09/03/21 Lidocaine/Prilocain 2.5% Cream 5 applic TOP UD #1 gm 08/30/21 08/31/21 [Emla 2.5% Cream] predniSONE [Prednisone] 100 mg PO UD #30 tablet 08/30/21 08/31/21 Review of Systems - Other Findings Other Findings: 10 pt ros as above otherwise unremarkable Exam - Vital Signs Vital Signs: Vital Signs x48h Temp Pulse Resp BP Pulse Ox 09/03/21 12:56 36.1 C L 76 16 131/69 H 97 - Physical Exam General Appearance: positive: No acute distress, Alert Eyes Bilateral: positive: PERRL, EOMI ENT: positive: No signs of dehydration Neck: positive: No JVD Respiratory: positive: No respiratory distress, Breath sounds nml Cardiovascular: positive: Regular rate & rhythm Abdomen: positive: Non-tender, No distention Neurologic/Psychiatric: positive: Oriented x3 Conclusion/Plan - Problem List (1) Lymphoma Conclusion/Plan: plan partacath placement. parq held and consent obtained - Lab Results Lab results reviewed: Yes
[2021-09-03] MEDS ORDERED: BUPIVACAINE 0.25% PF 30 ML VIAL SUBQ ONE ×2 (14:18)
[2021-09-03] MEDS ORDERED: LIDOCAINE 2%-EPI 1:100000 20 ML MDV SUBQ ONE ×2 (14:19)
[2021-09-03] MEDS ORDERED: ceFAZolin 1 GM VIAL ONE (14:25)
--- NOTE | 2021-09-03 14:58 | ANESTHESIA POST OP EVALUATION ---
Anesthesia Post Eval - Post Anesthesia Eval Vitals: Last Vital Signs Temp 36.1 C L 09/03/21 12:56 Pulse 76 09/03/21 12:56 Resp 16 09/03/21 12:56 BP 131/69 H 09/03/21 12:56 Pulse Ox 97 09/03/21 12:56 CV Function Including HR & BP: Stable Pain Control: Satisfactory Nausea & Vomiting: Negative Mental Status: Baseline Respiratory Status: Airway Patent Hydration Status: Satisfactory Anesthesia Complications: None
[2021-09-03] MEDS ORDERED: oxyCODONE 5 MG TABLET PO PRN (15:10)
--- NOTE | 2021-09-03 15:10 | OPERATIVE REPORT ---
Operative Report - General Procedure Date: 09/03/21 Planned Procedure: left subclavian port placement Pre-Op Diagnosis: lymphoma Procedure Performed: left subclavian port placement fluoroscopic guidance Post Op Diagnosis: lymphoma - Procedure Note Primary Surgeon: joann donald Anesthesia Technique: Local, MAC Estimated Blood Loss (mL): 5 Drain/Tube Type: Other (none) Indications: portacath needed for chemotherapy Findings: tip at svc/ atrium jxn good flush and flow Complications: none - Other Other Information/Narrative: The patient was properly identified brought to the operating room and placed in supine position. Monitored anesthesia care was given as well as IV sedation. A towel roll was placed under the upper back. The patient was prepped and draped in a sterile fashion and given preoperative antibiotics. Local anesthetic was given. The left subclavian vein was easily accessed first pass with a needle. Guide wire placed and position confirmed. A subcutaneous pocket on the left upper chest was created measuring approximately 2-1/2 cm. Portacatheter tubing was then placed subcutaneous up to the venous access point. The portacatheter tubing was then easily placed with the use of a dilator peel-away sheath. The tubing was aspirated and flushed with saline. Under fluoroscopic guidance the tubing was pulled back to the junction of the atrium and the superior vena cava. The portacatheter aspirated and flushed easily assuring good position. The portacatheter was then cut to size and further assembled. The port was secured to subcutaneous tissue with 2 interrupted 4-0 Prolene sutures. The port again was aspirated and flushed now with heparin. Buried interrupted subdermal 3-0 Vicryl sutures were then placed. Skin was closed with buried interrupted and running 4-0 Monocryl subcuticular suture. Dressing was applied. The patient tolerated the procedure well was awakened and brought to recovery in good condition.
[2021-09-03 15:18] VITALS: BP 111/55
--- NOTE | 2021-09-03 16:22 | XRAY Report ---
PROCEDURE: OR Port-A-Cath INDICATIONS: PORT PLACEMENT TECHNIQUE: Single fluoroscopic view of the chest was obtained intraoperatively COMPARISON: None. FINDINGS: There is a distal catheter tip visualized projected over the region of the cavoatrial junction. IMPRESSION: Catheter tip projected over the cavoatrial junction. Reviewed by: Olga Christina MD on 09/03/2021 4:20 PM PDT Approved by: Olga Christina MD on 09/03/2021 4:20 PM PDT Station ID: [id number]
== END 2021-09-03 12:52 | disposition home or self-care (01) ==
LOC: SDS 12:51
PROVIDERS: ATTEND Surgery
DX: C85.10 Unspecified B-cell lymphoma, unspecified site (principal); I10 Essential (primary) hypertension; E11.9 Type 2 diabetes mellitus without complications; E66.9 Obesity, unspecified; Z68.35 Body mass index [BMI] 35.0-35.9, adult; Z79.4 Long term (current) use of insulin; Z79.82 Long term (current) use of aspirin; Z79.84 Long term (current) use of oral hypoglycemic drugs; Z79.899 Other long term (current) drug therapy
CPT/HCPCS: 36561; C1788; J7120

== ENCOUNTER 2021-10-05 11:30 | Emergency (ER) | payer MEDICARE, OTHER ==
[2021-10-05] MEDS ORDERED: diltiaZEM INJ 5 MG/ML VIAL IVP STA (12:06)
[2021-10-05] MEDS ORDERED: SODIUM CHLORIDE 0.9% 1,000 ML IV STA (12:06)
--- NOTE | 2021-10-05 12:09 | ED Physician Documentation ---
History of Present Illness - Stated complaint Stated Complaint: DIZZY, BACK PX - Chief complaint Chief Complaint: Abd Pain - Additonal information Additional information: 71-year-old male comes to the emergency department for evaluation of feeling lightheaded and dizzy that began this morning. States that he felt he was off balance and was worried that he may faint. He also reports increased urinary frequency urinating 7 times last night. There was no dysuria. He unfortunately has B-cell lymphoma and just completed his second round of chemotherapy as well as a course of steroids. He is followed by Dr. Oh with our [facility] clinic. He states that his blood sugars have been higher than normal. He is denying any dyspnea or shortness of air. He does not have a sensation of palpitations. No leg swelling. No cough or fevers. No melena or hematochezia but he does endorse some left lower abdominal discomfort. Review of Systems Constitutional: denies: Fever, Chills Eyes: reports: Reviewed and negative Throat: reports: Reviewed and negative Cardiac: denies: Chest pain / pressure, Palpitations Respiratory: denies: Dyspnea, Cough GI: reports: Abdominal Pain. denies: Nausea, Vomiting, Hematemesis, Bloody / black stool : reports: Frequency. denies: Dysuria, Hesitancy, Unable to Void, Incontinent Skin: denies: Rash, Lesions Musculoskeletal: reports: Reviewed and negative Neurologic: reports: Reviewed and negative PD PAST MEDICAL HISTORY - Past Medical History Cardiovascular: Hypertension, High cholesterol Respiratory: None Endocrine/Autoimmune: Type 2 diabetes GI: None : Benign prostate hypertrophy, Frequency HEENT: None Psych: None Musculoskeletal: None Derm: None - Past Surgical History General: Bowel surgery, Colonoscopy, Other Ortho: Shoulder arthroplasty, Arthroscopic surgery - Present Medications Home Medications: Ambulatory Orders Medication Instructions Recorded Confirmed Aspirin 81 mg ORAL DAILY 08/29/16 10/05/21 Ibuprofen 200 mg ORAL DAILY PRN 08/29/16 10/05/21 Losartan [Cozaar] 100 mg ORAL DAILY 08/29/16 10/05/21 Lovastatin [Altoprev] 40 mg ORAL DAILY 08/29/16 10/05/21 Metoprolol Tartrate 50 mg ORAL BID 08/29/16 10/05/21 Sildenafil Citrate [Sildenafil] 20 mg ORAL DAILY PRN 08/29/16 10/05/21 allopurinoL [Allopurinol] 150 mg ORAL DAILY 08/29/16 10/05/21 amLODIPine [Norvasc] 10 mg ORAL DAILY 08/29/16 10/05/21 hydroCHLOROthiazide 25 mg ORAL DAILY 08/29/16 10/05/21 [Hydrochlorothiazide] metFORMIN [Glucophage] 2,000 mg ORAL BID 08/29/16 10/05/21 Insulin Glargine,Hum.rec.anlog 20 units SQ HS 10/05/21 10/05/21 [Basaglar Kwikpen U-100] Rivaroxaban [Xarelto] 20 mg PO DAILY #30 tablet 10/05/21 oxyCODONE [Roxicodone] 5 mg PO TID PRN #15 tablet 10/05/21 - Allergies Allergies/Adverse Reactions: Allergies Allergy/AdvReac Type Severity Reaction Status Date / Time No Known Drug Allergies Allergy Verified 10/05/21 11:33 - Social History Does the pt smoke?: No Smoking Status: Never smoker PD ED PE EXPANDED - General General: Alert, No acute distress, Well developed/nourished - Cardiac Cardiac: Tachy, Irregularly irregular, Radial strong equal, Pedal strong equal, Cap refill < 2 sec - Respiratory Respiratory: Clear to ausultation tyson. No: Distress, Labored - Abdomen Abdomen: Normal Bowel sounds, Surgical scars (Large midline ventral incision well-healed). No: Tender to palpation - Derm Derm: Normal color, Warm and dry. No: Rash - Extremities Extremities: Normal. No: Deformity, Tenderness - Neuro Neuro: Alert and Oriented X 3, CNII-XII intact - GCS Eye Opening: Spontaneous Motor: Obeys Commands Verbal: Oriented Total: 15 Results - Vitals Vitals: Vital Signs - 24 hr 10/05/21 10/05/21 10/05/21 11:33 13:18 13:50 Temperature 36.2 C L 37.2 C Heart Rate 86 104 H 97 Respiratory 19 16 14 Rate Blood Pressure 114/67 114/60 113/69 O2 Saturation 97 95 95 Oxygen O2 Source Room air - EKG (time done) 1200 Rate: Rate (enter#) (105) Rhythm: Atrial fibrillation [place]: LAD Intervals: No: Prolonged QT QRS: Normal Ischemia: Normal ST segments Compare to prior EKG: Unchanged from prior EKG Computer interpretation: Disagree with computer - Labs Labs: Laboratory Tests 10/05/21 10/05/21 10/05/21 12:50 12:50 12:50 WBC 1.7 L* RBC 4.72 Hgb 13.8 L Hct 40.6 L MCV 86.0 MCH 29.2 MCHC 34.0 RDW 13.2 Plt Count 127 L MPV 11.1 Neut # (Auto) Not Reportable Lymph # (Auto) Not Reportable [place] # (Auto) Not Reportable Eos # (Auto) Not Reportable Baso # (Auto) Not Reportable Absolute Nucleated RBC Not Reportable Total Counted 100 Band Neuts % (Manual) 2 Reactive Lymphs % (Man) 32 Abnorm Lymph % (Manual) 0 Nucleated RBC % Not Reportable Neutrophils # (Manual) 0.3 L* Lymphocytes # (Manual) 1.1 L Monocytes # (Manual) 0.2 Eosinophils # (Manual) 0.1 Basophils # (Manual) 0.1 Differential Comment MANUAL DIFFERENTIAL Manual Slide Review Indicated PT INR Sodium Potassium Chloride Carbon Dioxide Anion Gap BUN Creatinine Estimated GFR (MDRD) Glucose Calcium Total Bilirubin AST ALT Alkaline Phosphatase Troponin I High Sens 9.7 B-Natriuretic Peptide 200 H Total Protein Albumin Globulin Albumin/Globulin Ratio Lipase Urine Color Urine Clarity Urine pH Ur Specific [place] Urine Protein Urine Glucose (UA) Urine Ketones Urine Occult Blood Urine Nitrite Urine Bilirubin Urine Urobilinogen Ur Leukocyte Esterase Ur Microscopic Review Urine Culture Comments 10/05/21 10/05/21 10/05/21 12:50 12:50 12:53 WBC RBC Hgb Hct MCV MCH MCHC RDW Plt Count MPV Neut # (Auto) Lymph # (Auto) [place] # (Auto) Eos # (Auto) Baso # (Auto) Absolute Nucleated RBC Total Counted Band Neuts % (Manual) Reactive Lymphs % (Man) Abnorm Lymph % (Manual) Nucleated RBC % Neutrophils # (Manual) Lymphocytes # (Manual) Monocytes # (Manual) Eosinophils # (Manual) Basophils # (Manual) Differential Comment Manual Slide Review PT 11.6 INR 1.0 Sodium 135 Potassium 3.6 Chloride 98 L Carbon Dioxide 26 Anion Gap 11.0 BUN 20 Creatinine 0.9 Estimated GFR (MDRD) 83 L Glucose 230 H Calcium 9.0 Total Bilirubin 0.4 AST 14 ALT 17 Alkaline Phosphatase 56 Troponin I High Sens B-Natriuretic Peptide Total Protein 6.8 Albumin 3.5 Globulin 3.3 Albumin/Globulin Ratio 1.1 Lipase 28 Urine Color YELLOW Urine Clarity CLEAR Urine pH 5.5 Ur Specific [place] 1.025 Urine Protein NEGATIVE Urine Glucose (UA) NEGATIVE Urine Ketones NEGATIVE Urine Occult Blood NEGATIVE Urine Nitrite NEGATIVE Urine Bilirubin NEGATIVE Urine Urobilinogen 0.2 (NORMAL) Ur Leukocyte Esterase NEGATIVE Ur Microscopic Review NOT INDICATED Urine Culture Comments NOT INDICATED - Rads (name of study) cxr Radiology: Final report received (gerhard acute cardiopulmonary pulmonary pathology) PD MEDICAL DECISION MAKING - ED course Complexity details: reviewed results, re-evaluated patient, d/w patient, d/w securities consultant (Norberto Mihcele heme/onc) ED course: 71-year-old male who is undergoing chemotherapy for lymphoma presents the emergency department for evaluation of dizziness that has become recurrent since last night. He denied palpitations, chest pain or shortness of air. He had also endorsed urinary frequency over the last 24 hours. Past medical history is most significant for hypertension and diabetes. He did complete his second cycle of chemotherapy last week but denies any fevers, nausea or vomiting. He does have some mild left-sided low back pain. On presentation to the ER he appeared very well though he was noted to be in A. fib with RVR heart rate up to 160. This is a new finding for him. Initially he was treated with 10 mg of Cardizem with resultant decrease in his heart rate to the 90s shortly thereafter he increased to the 150s and he was given 120 of oral Cardizem. His BNP is 200 Screening chest x-ray showed no focal infiltrates findings of congestive heart failure or pleural effusion. Urine was free of infection. Blood cultures are pending. He is noted to be fairly leukopenic with a white count of 1.7 and an ANC of 0.2. This is expected given recent chemotherapy. . I discussed the new onset atrial fibrillation with Dr. michele. The patient has a CHADS2 Vascor of 3 putting him at moderate to high risk for stroke in the setting of A. fib. She felt that it was okay for us to start anticoagulation in the setting of lymphoma and chemotherapy. She did request that we prescribe some oxycodone for his low back pain which she thinks is likely secondary to the colony-stimulating factor that he is received with chemotherapy. Clinically this gentleman does not need to be admitted to the hospital for further evaluation or treatment of his atrial fibrillation. No hypoxia or Findings of congestive heart failure. He will follow-up with his primary care provider to obtain referral to cardiology for longer-term evaluation and management whI am prescribing a short course of short-acting opioid pain medication for this patient. I have reviewed the patients [employer] and no concerning findings were noted. I have discussed that the opioids are for short term therapy only, and will not be refilled from the ED.ich will likely include an echocardiogram. I am making the recommendation for rate control to increase his metoprolol from 50 mg twice daily to now 100 mg twice daily. He will be started on Xarelto. I did spend a fair amount of time at the bedside with both the patient and her discussing longer-term management of atrial fibrillation, sequelae of strokes and heart failure as well as emergent return precautions for such. Departure - Departure Disposition: 01 Home, Self Care Clinical Impression: Atrial fibrillation with RVR Neutropenia Qualifiers: Neutropenia type: secondary to cancer chemotherapy Qualified Code(s): D70.1 - Agranulocytosis secondary to cancer chemotherapy; T45.1X5A - Adverse effect of antineoplastic and immunosuppressive drugs, initial encounter Condition: Stable Record reviewed to determine appropriate education?: Yes Instructions: AFL/Afib, Rivaroxaban oral tablets Follow-Up: Darrell Paris DO [Primary Care Provider] - Ar Michele MD [Physician No Access] - Prescriptions: oxyCODONE [Roxicodone] 5 mg PO TID PRN #15 tablet PRN Reason: Pain Rivaroxaban [Xarelto] 20 mg PO DAILY #30 tablet Comments: Tom you are seen today in the emergency department because you have been feeling dizzy. You are found to have an abnormal heart rhythm called atrial fibrillation. The cause of this is not clear though it may be related to your high blood pressure history as well as recent chemotherapy. The biggest risk with atrial fibrillation is the development of heart failure if your heart rate stays too high for too long or the development of clots that can cause stroke. You are at moderate to high risk for stroke based on yoru risk factors. In order to help control your heart rate I would like you to increase your metoprolol at home to 100 mg twice daily. I do recommend that you check your heart rate 2-3 times a day at rest. If you find that you have a sustained heart rate greater than 120-140 or you are feeling very dizzy or short of breath please return immediately to the ER. I am starting you on a medication called Xarelto which is used to help reduce the risk of clot formation and stroke in atrial fibrillation. Your first dose is given in the emergency department and you should fill the prescription and begin taking tomorrow once daily. If you ever have any uncontrolled bleeding, black or bloody stools, blood in your urine, sudden severe headache then you should return immediately to the emergency department. Even if you hit your head while falling you should return to the ER. While you take blood thinners like Xarelto it is important that you do not take NSAID medication such as ibuprofen, Aleve or Advil as this can increase your bleeding risk. For pain we do recommend that you take Tylenol or the oxycodone that I am prescribing It is very important that your primary care doctor make a referral to you to cardiology for longer-term evaluation and management of your atrial fibrillation. You will need an echocardiogram. If you ever feel suddenly short of breath or have chest pain you should return to the emergency department. I am prescribing a small amount of oxycodone to help with the left low sided back pain. Please use this cautiously it may make you unsafe to drive and dizzy. It can also cause constipation. I am prescribing a short course of narcotic pain medication for you. These are potentially dangerous and addictive medications that should be used carefully. These medications may constipate you. Take an unmi-ali-bznvhdd stool softener (docusate) twice daily with plenty of water while taking these medications. If you go 24 hours without a bowel movement, take ebxa-qda-vusivxb miralax, per package instructions. Do not drink or drive while taking these medications. If you received narcotic or sedating medications while in the emergency department, do not drive for 24 hours. Store this medication in a safe, secure place and out of reach of children. It is a violation of federal law to give or sell this medication to another person or to use in a manner other than prescribed. The ED will not refill narcotic prescriptions, including prescriptions lost or stolen. To dispose of unwanted medications: 1. [facility] [address] [facility] [place] has a medication drop box. They accept prescription medications (in pill form) Monday through Monday 9:00 a.m. to 5:00 p.m. 2. [facility] [employer] [facility] accepts prescription medications (in pill form only) for disposal year round. Call for more information. 3. Contact the [facility] for the next [facility] sponsored prescription drug collection event. , [phone], or [phone]; Note that many narcotic pain relievers also contain Tylenol/acetaminophen. Please ensure that your total dose of acetaminophen from all sources does not exceed 3 g (3000 mg) per day.
--- NOTE | 2021-10-05 12:48 | XRAY Report ---
PROCEDURE: Chest 1 View X-Ray INDICATIONS: chest pain TECHNIQUE: One view of the chest was acquired. COMPARISON: Reference is made to the chest radiograph report May 18, 2011 FINDINGS: Suboptimal positioning. SUPPORT DEVICES: A CT injectable left andrew catheter is seen. LUNGS/PLEURA: No focal consolidation, pleural effusion or space-occupying pneumothorax. MEDIASTINUM: The cardiomediastinal silhouette is within normal limits. BONES/SOFT TISSUES: No acute abnormality. IMPRESSION: 1.No acute cardiopulmonary abnormality. Reviewed by: Acosta Saha MD on 10/05/2021 12:46 PM PDT Approved by: Acosta Saha MD on 10/05/2021 12:46 PM PDT Station ID: [id number]
[2021-10-05 13:04] LABS: EOSINOPHILS % (AUTO) 5.3 %; HCT - HEMATOCRIT 40.6 % (42.0-52.0); HGB - HEMOGLOBIN 13.8 g/dL (14.0-18.0); LYMPHOCYTES % (AUTO) 56.8 %; MEAN CORPUSCULAR HEMOGLOBIN 29.2 pg (27.0-31.0); MEAN PLATELET VOLUME 11.1 fL (7.4-11.4); MONOCYTES % (AUTO) 19.5 %; NEUTROPHILS % (AUTO) 13.6 %; PLT - PLATELET COUNT 127 10^3/uL (130-450); RED BLOOD COUNT 4.72 10^6/uL (4.70-6.10); RED CELL DISTRIBUTION WIDTH 13.2 % (12.0-15.0)
[2021-10-05 13:06] LABS: SLIDE REVIEW? Indicated
[2021-10-05 13:08] LABS: WHITE BLOOD COUNT 1.7 x10^3/uL (4.8-10.8)
[2021-10-05 13:09] LABS: ABNORMAL LYMPHS % (MANUAL) 0 %
[2021-10-05 13:12] LABS: BILIRUBIN,URINE NEGATIVE (NEGATIVE); GLUCOSE, URINE (UA) NEGATIVE (NEGATIVE); KETONES,URINE (UA) NEGATIVE (NEGATIVE); LEUKOCYTE ESTERASE, URINE NEGATIVE (NEGATIVE); NITRITE,URINE NEGATIVE (NEGATIVE); OCCULT BLOOD,URINE NEGATIVE (NEGATIVE); PH,URINE 5.5 PH (5.0-7.5); PROTEIN,URINE NEGATIVE (NEGATIVE); UROBILINOGEN,URINE 0.2 (NORMAL) E.U./dL (NORMAL)
[2021-10-05 13:14] LABS: PT - PROTHROMBIN TIME 11.6 secs (9.9-12.6)
[2021-10-05 13:15] LABS: CLARITY,URINE CLEAR (CLEAR)
[2021-10-05 13:42] LABS: ALBUMIN 3.5 g/dL (3.2-5.5); ALBUMIN/GLOBULIN RATIO 1.1 (1.0-2.2); BILIRUBIN,TOTAL 0.4 mg/dL (0.2-1.0); CREATININE 0.9 mg/dL (0.6-1.2); POTASSIUM 3.6 mmol/L (3.5-5.0); TOTAL PROTEIN 6.8 g/dL (6.7-8.2)
[2021-10-05] MEDS ORDERED: diltiaZEM CD 120 MG CAPSULE PO STA (13:55)
[2021-10-05 14:19] LABS: BAND NEUTROPHILS % (MANUAL) 2 %; BASOPHILS # (MANUAL) 0.1 10^3/uL (0-0.1); BASOPHILS % (MANUAL) 4 %; DIFFERENTIAL COMMENT MANUAL DIFFERENTIAL; EOSINOPHILS # (MANUAL) 0.1 10^3/uL (0-0.7); LYMPHOCYTES # (MANUAL) 1.1 10^3/uL (1.5-3.5); LYMPHOCYTES % (MANUAL) 30 %; MONOCYTES # (MANUAL) 0.2 10^3/uL (0.0-1.0); NEUTROPHILS # (MANUAL) 0.3 10^3/uL (1.5-6.6); REACTIVE LYMPHS % (MANUAL) 32 %
[2021-10-05] MEDS ORDERED: RIVAROXABAN 15 MG TABLET PO STA ×2 (14:45→14:56)
[2021-10-05 15:21] VITALS: BP 121/69
== END 2021-10-05 15:39 | disposition home or self-care (01) ==
LOC: ED 11:30
DX: I48.91 Unspecified atrial fibrillation (principal); D70.1 Agranulocytosis secondary to cancer chemotherapy; C85.10 Unspecified B-cell lymphoma, unspecified site; T45.1X5A Adverse effect of antineoplastic and immunosuppressive drugs, initial encounter; I10 Essential (primary) hypertension
CPT/HCPCS: 36415; 71045; 80053; 81003; 83690; 83880; 84484; 85025; 85610; 87040; 93005; 96374; 96375; 99283; 99285; A9270; 81001; 87086

== ENCOUNTER 2021-10-27 07:22 | Outpatient (CLI) | payer MEDICARE, OTHER ==
[2021-10-27 12:36] LABS: BASOPHILS # (AUTO) 0.1 10^3/uL (0.0-0.1); BASOPHILS % (AUTO) 3.6 %; EOSINOPHILS # (AUTO) 0.2 10^3/uL (0.0-0.7); EOSINOPHILS % (AUTO) 7.9 %; HCT - HEMATOCRIT 39.2 % (42.0-52.0); HGB - HEMOGLOBIN 12.9 g/dL (14.0-18.0); LYMPHOCYTES % (AUTO) 37.5 %; MEAN CORPUSCULAR HEMOGLOBIN 28.7 pg (27.0-31.0); MEAN CORPUSCULAR HGB CONC 32.9 g/dL (32.0-36.0); MEAN CORPUSCULAR VOLUME 87.3 fL (80.0-94.0); MEAN PLATELET VOLUME 10.8 fL (7.4-11.4); MONOCYTES # (AUTO) 0.6 10^3/uL (0.0-1.0); MONOCYTES % (AUTO) 22.9 %; NRBC ABSOLUTE COUNT (AUTO) 0.02 x10^3/uL; NUCLEATED RED BLOOD CELLS AUTO 0.8 /100WBC; PLT - PLATELET COUNT 142 10^3/uL (130-450); RED BLOOD COUNT 4.49 10^6/uL (4.70-6.10); RED CELL DISTRIBUTION WIDTH 14.6 % (12.0-15.0); WHITE BLOOD COUNT 2.5 x10^3/uL (4.8-10.8)
[2021-10-27 12:47] LABS: NEUTROPHILS # (AUTO) 0.6 10^3/uL (1.5-6.6)
[2021-10-27 12:48] LABS: THYROID STIMULATING HORMONE 2.34 uIU/mL (0.34-5.60)
[2021-10-27 12:49] LABS: ALBUMIN/GLOBULIN RATIO 1.2 (1.0-2.2); ALKALINE PHOSPHATASE 64 IU/L (42-121); ALT ALANINE AMINOTRANSFERASE 22 IU/L (10-60); AST ASPARTATE AMINOTRANSFERASE 15 IU/L (10-42); BILIRUBIN,TOTAL 0.5 mg/dL (0.2-1.0); BUN - BLOOD UREA NITROGEN 16 mg/dL (6-20); CALCIUM 9.4 mg/dL (8.5-10.3); CARBON DIOXIDE - CO2 30 mmol/L (21-32); CHLORIDE 100 mmol/L (101-111); CHOL/HDL RATIO 2.5 (<5.0); CHOLESTEROL 111 mg/dL; CREATININE 0.9 mg/dL (0.6-1.2); GFR - MDRD 83 (>89); GLUCOSE 163 mg/dL (70-100); HDL CHOLESTEROL 44 mg/dL; LDL CHOLESTEROL,CALCULATED 45 mg/dL; MAGNESIUM 1.9 mg/dL (1.7-2.8); POTASSIUM 3.9 mmol/L (3.5-5.0); SODIUM 142 mmol/L (135-145); TOTAL PROTEIN 7.4 g/dL (6.7-8.2); TRIGLYCERIDES 109 mg/dL; VLDL CHOLESTEROL 22 mg/dL
[2021-10-27 12:52] LABS: SLIDE REVIEW? Indicated
[2021-10-27 13:14] LABS: ESTIMATED AVERAGE GLUCOSE 174 mg/dL (70-100); HEMOGLOBIN A1c% 7.7 % (4.27-6.07)
[2021-10-27 14:04] LABS: RBC MORPHOLOGY (MULTIPLE) 2+ ANISOCYTOSIS (NORMAL)
== END 2021-10-27 07:23 | disposition home or self-care (01) ==
LOC: LAB.N 07:22
PROVIDERS: ATTEND Nurse Practitioner Family
DX: E11.39 Type 2 diabetes mellitus with other diabetic ophthalmic complication (principal); E55.9 Vitamin D deficiency, unspecified
CPT/HCPCS: 36415; 80053; 80061; 82306; 83036; 83721; 83735; 84443; 85025